=== PATIENT | female | born 1990 | race Caucasian/White ===

== ENCOUNTER → 2018-10-24 | Emergency (ER) | payer OTHER ==
[~2018-10-24] VITALS: Ht 160 cm; Wt 54.4 kg
== END | disposition home or self-care (01) ==
LOC: ER 18:29
DX: R07.89 Other chest pain (principal); J02.8 Acute pharyngitis due to other specified organisms

== ENCOUNTER 2019-05-28 18:02 | Outpatient (CLI) | payer OTHER | END 2019-05-28 18:05 | disposition home or self-care (01) | LOC: LAB 18:02 | DX: J11.1 Influenza due to unidentified influenza virus with other respiratory manifestations (principal); J20.0 Acute bronchitis due to Mycoplasma pneumoniae ==